=== PATIENT | female | born 1945 | race Asian ===

== ENCOUNTER 2016-07-31 06:35 | Day surgery (SDC) | payer MEDICARE, OTHER ==
[~2016-07-31 06:35] MED LIST: Acetaminophen TAB* 325 MG PO PRN; Buffered Lidocaine 1% SYRIN* 5 ML/SYR SYRINGE INTRADERM ONE
[2016-07-31] MEDS ORDERED: Midazolam* 1 MG/ML 5 ML VIAL (5 MG) ONE (07:36)
[2016-07-31] MEDS ORDERED: fentaNYL* 50 MCG/ML 2 ML VIAL (100 MCG VIAL) ONE (07:36)
[2016-07-31 08:15] VITALS: BP 118/64
[2016-07-31] MEDS ORDERED: Lidocaine 1% MPF* 2 ML VIAL ONE (13:21)
[2016-07-31] MEDS ORDERED: Tropicamide 1% OPTH.SOL* BTL ONE (13:21)
[2016-07-31] MEDS ORDERED: Cyclopentolate 1% OPTH.SOL* 2 ML BTL ONE (13:21)
[2016-07-31] MEDS ORDERED: Neomycin/Polymy/Dex OPHTH.OIN* 3.5 GM ONE (13:21)
[2016-07-31] MEDS ORDERED: Phenylephrine 2.5% OPTH.SOL* 2 ML BTL ONE (13:21)
[2016-07-31] MEDS ORDERED: Tetracaine 0.5% OPTH.SOL 4 ML* 1 DROP BTL ONE (13:21)
[2016-07-31] MEDS ORDERED: Flurbiprofen 0.03% OPTH.SOL* 2.5 ML BTL ONE (13:21)
--- NOTE | 2016-08-01 00:26 | OP ---
OPERATIVE REPORT: DATE OF OPERATION: 07/31/16 - [facility] DATE OF : 45 SURGEON: Dr. Felipe Portillo. BAGGAGE HANDLER: None. ANESTHESIA: Topical with intravenous sedation. PRE-OP DIAGNOSIS: Cataract, right eye. POST-OP DIAGNOSIS: Cataract, right eye. OPERATIVE PROCEDURE: Phacoemulsification and cataract extraction with posterior chamber intraocular lens implant, right eye. COMPLICATIONS: None. BLOOD LOSS: None. OPERATIVE FINDINGS: The patient was brought to the operating room and received a small amount of intravenous sedation. A drop of tetracaine was placed in her right eye. She was prepped and draped in the usual sterile fashion for ophthalmic surgery and attention was directed to the right eye where a speculum was placed. A paracentesis was created at the 11 o'clock position and 0.1 cc of 1 percent preservative-free Lidocaine was injected into the anterior chamber followed by DisCoVisc. The eye was digitally stabilized while a 2.75 mm keratome was used to create a triplanar clear corneal incision at the 9 o'clock position. A continuous curvilinear capsulorrhexis was created with a cystotome and Utrata forceps. BSS on a cannula was used to hydrodissect the lens from the capsule. Phacoemulsification was performed in a [id number]-[id number] technique to create four fragments which were removed. Residual cortical material was removed with irrigation and aspiration. DisCoVisc was used to inflate the capsular bag and an AU00T0 diopter lens was folded and inserted into the capsular bag. DisCoVisc was removed using irrigation and aspiration. BSS on a cannula was used to hydrate the corneal stroma and seal the wound. At the end of the case the pupil was round and the lens was centered. The eye was of normal pressure and the wound was water tight. The speculum was removed and topical Maxitrol ointment was placed on the surface of the eye. The eye was closed, patched and shielded and the patient was sent to the recovery room in stable condition with post operative instructions and follow-up appointment given. [id number]/[facility] #: [id number] MTDShelley
== END 2016-07-31 08:28 | disposition home or self-care (01) ==
LOC: OREAST 06:35
PROVIDERS: ATTEND Ophthalmology
DX: H25.11 Age-related nuclear cataract, right eye (principal); Z85.3 Personal history of malignant neoplasm of breast; Z22.8 Carrier of other infectious diseases
CPT/HCPCS: A9270-GY; J2250; J3010; V2632

== ENCOUNTER 2016-08-07 09:55 | Day surgery (SDC) | payer MEDICARE, OTHER ==
[~2016-08-07 09:55] MED LIST changes: -Acetaminophen TAB* 325 MG PO PRN
[2016-08-07] MEDS ORDERED: Midazolam* 1 MG/ML 2 ML VIAL (2 MG) ONE (12:33)
[2016-08-07] MEDS ORDERED: Flurbiprofen 0.03% OPTH.SOL* 2.5 ML BTL ONE (13:02)
[2016-08-07] MEDS ORDERED: Tetracaine 0.5% OPTH.SOL 4 ML* 1 DROP BTL ONE (13:02)
[2016-08-07] MEDS ORDERED: Neomycin/Polymy/Dex OPHTH.OIN* 3.5 GM ONE (13:02)
[2016-08-07] MEDS ORDERED: Cyclopentolate 1% OPTH.SOL* 2 ML BTL ONE (13:02)
[2016-08-07] MEDS ORDERED: Tropicamide 1% OPTH.SOL* BTL ONE (13:02)
[2016-08-07] MEDS ORDERED: Lidocaine 1% MPF* 2 ML VIAL ONE (13:02)
[2016-08-07] MEDS ORDERED: Phenylephrine 2.5% OPTH.SOL* 2 ML BTL ONE (13:02)
[2016-08-07 13:05] VITALS: BP 119/67
--- NOTE | 2016-08-07 22:57 | OP ---
OPERATIVE REPORT: DATE OF OPERATION: 08/07/16 DATE OF : 45 SURGEON: Dr. Felipe Portillo. LIFT MECHANIC: None. ANESTHESIA: Topical with intravenous sedation. PRE-OP DIAGNOSIS: Cataract, left eye. POST-OP DIAGNOSIS: Cataract, left eye. OPERATIVE PROCEDURE: Phacoemulsification and cataract extraction with posterior chamber intraocular lens implant, left eye. COMPLICATIONS: None. BLOOD LOSS: None. OPERATIVE FINDINGS: The patient was brought to the operating room and received a small amount of in travenous sedation. A drop of Tetracaine was placed in her left eye. She was prepped and draped in the usual sterile fashion for ophthalmic surgery and attention was directed to the left eye where a speculum was placed. A paracentesis was created at the 5 o'clock position and 0.1 cc of 1 percent preservative-free Lidocaine was injected into the anterior chamber followed by DisCoVisc. The eye w as digitally stabilized while a 2.75 mm keratome was used to create a triplanar clear corneal incisi on at the 3 o'clock position. A continuous curvilinear capsulorrhexis was created with a cystotome and Utrata forceps. BSS on a cannula was used to hydrodissect the lens from the capsule. Phacoemul sification was performed in a ggxivn-pbi-vautnlz technique to create four fragments which were remov ed. Residual cortical material was removed with irrigation and aspiration. DisCoVisc was used to in flate the capsular bag and AU00T0 15.0 diopter lens was folded and inserted into the capsular bag. DisCoVisc was removed using irrigation and aspiration. BSS on a cannula was used to hydrate the cor mari stroma and seal the wound. At the end of the case the pupil was round and the lens was centere d. The eye was of normal pressure and the wound was water tight. The speculum was removed and topic al Maxitrol ointment was placed on the surface of the eye. The eye was closed, patched and shielded and the patient was sent to the recovery room in stable condition with post operative instructions and follow-up appointment given. [id number]/[facility] #: [id number]
== END 2016-08-07 13:19 | disposition home or self-care (01) ==
LOC: OREAST 09:55
PROVIDERS: ATTEND Ophthalmology
DX: H25.12 Age-related nuclear cataract, left eye (principal); Z85.3 Personal history of malignant neoplasm of breast; Z22.8 Carrier of other infectious diseases
CPT/HCPCS: A9270-GY; J2250

== ENCOUNTER 2017-08-19 19:06 | Emergency (ER) | payer MEDICARE ==
[2017-08-19 19:37] VITALS: BP 136/58
--- NOTE | 2017-08-19 20:19 | UC ---
Skin Complaint HPI - HPI Summary HPI Summary: 71 y/o female presents to the urgent care c/o red spot above the RT knee she noticed this morning. Pt reports she usually is working on her garden. She thinks it is a tick bite because last year she had a similar rash after removing a tick. However this time she didn't see the tick. Pt denies fever , CHEATHAM, joint pain, abdominal pain, SOB, chest pain, N/V/D. - History of Current Complaint Hx Obtained From: Patient Onset/Duration: Sudden Onset, Lasting Hours - 12 hrs, Resolved Skin Exposure Onset/Duration: Hours Ago - 12 hrs Timing: Constant Onset Severity: Mild Current Severity: Mild Pain Intensity: 0 Pain Scale Used: 0-10 Numeric Location: Discrete - Right thigh Character: Redness Aggravating Factor(s): Touch Alleviating Factor(s): Nothing Associated Signs & Symptoms: Positive: Rash Related History: Possible Reaction to: Insect <Masha Dejesus - Last Filed: 08/20/17 23:05> <Salma Saravia - Last Filed: 08/21/17 08:15> - History of Current Complaint Chief Complaint: UCSkin Time Seen by Provider: 08/19/17 20:00 Stated Complaint: SKIN COMPLAINT - Allergy/Home Medications Allergies/Adverse Reactions: Allergies Allergy/AdvReac Type Severity Reaction Status Date / Time Penicillins Allergy Severe Hives Verified 08/19/17 19:38 Review of Systems Constitutional: Negative Skin: Rash - RT thigh tick bite Eyes: Negative ENT: Negative Respiratory: Negative Cardiovascular: Negative Gastrointestinal: Negative Genitourinary: Negative Motor: Negative Neurovascular: Negative Musculoskeletal: Negative Neurological: Negative Psychological: Negative Is Patient Immunocompromised?: No All Other Systems Reviewed And Are Negative: Yes <Masha Dejesus - Last Filed: 08/20/17 23:05> PMH/Surg Hx/FS Hx/Imm Hx Previously Healthy: Yes - Pt denies PMHX - Surgical History Surgical History: Yes Surgery Procedure, Year, and Place: RIGHT MASTECTOMY, DENTAL SURGERY - Family History Known Family History: Positive: Hypertension - Social History Occupation: Retired Lives: With Family Alcohol Use: None Substance Use Type: None Smoking Status (MU): Never Smoked Tobacco <Masha Dejesus - Last Filed: 08/20/17 23:05> Physical Exam - Summary Physical Exam Summary: Vital Signs Reviewed: Yes General: well developed, well nourished female sitting in the examining table w/ o any apparent distress. Eyes: Positive: Conjunctiva Clear - PERRLA, EOMI ENT: Positive: Normal ENT inspection, Hearing grossly normal, Pharynx normal, TMs normal Neck: Positive: Supple, Nontender, No Lymphadenopathy Respiratory: Positive: Chest nontender, Lungs clear, Normal breath sounds Cardiovascular: Positive: RRR, No Murmur, Pulses Normal Abdomen Description: Positive: Nontender, No Organomegaly, Soft. Negative: CVA Tenderness (R), CVA Tenderness (L) Bowel Sounds: Positive: Present Musculoskeletal: Positive: Strength Intact, ROM Intact, No Edema Neurological Exam: Normal Psychological Exam: Normal Skin: Positive: rashes - Distal anterior aspect ot the RT thigh with tick bite with surrounding erythema, non tender to palpation. tick no longer present, no swelling or drainage observed. Triage Information Reviewed: Yes Vital Signs: Initial Vital Signs Temp 97.6 F 08/19/17 19:31 Pulse 69 08/19/17 19:31 Resp 16 08/19/17 19:31 BP 136/58 08/19/17 19:31 Pulse Ox 98 08/19/17 19:31 <Masha Dejesus - Last Filed: 08/20/17 23:05> Vital Signs: Initial Vital Signs Temp 97.6 F 08/19/17 19:31 Pulse 69 08/19/17 19:31 Resp 16 08/19/17 19:31 BP 136/58 08/19/17 19:31 Pulse Ox 98 08/19/17 19:31 <Salma Saravia - Last Filed: 08/21/17 08:15> Course/Dx - Course Course Of Treatment: 71 y/o female presents to the urgent care c/o red spot above the RT knee she noticed this morning. Pt reports she usually is working on her garden. She thinks it is a tick bite because last year she had a similar rash after removing a tick. However this time she didn't see the tick. Pt denies fever , CHEATHAM, joint pain, abdominal pain, SOB, chest pain, N/V/D.Hx obtained. PT w/ Distal anterior aspect ot the RT thigh with tick bite with surrounding erythema, non tender to palpation. tick no longer present, no swelling or drainage observed on examination. Antibiotic prophylaxis with Doxycycline given to the patient to prevent lyme Disease.. Pt tolerated well medication. Pt advised to observe the area for the development or Erythema Migrans for upto 30 days following exposure. Advised if he develops fever or erythema Migrans to return to the clinic or PCP for further treatment .Pt understood and agreed with plan of care. - Differential Diagnoses - Skin Complaint Differential Diagnoses: Abscess, Cellulitis, Contact Dermatitis, Tick Born Illness, Other - insect bite, bee sting - Diagnoses Provider Diagnoses: 1- RT thigh insect bite <Masha Dejesus - Last Filed: 08/20/17 23:05> Discharge - Sign-Out/Discharge Documenting (check all that apply): Discharge/Admit/Transfer - D/c home - Billing Disposition and Condition Condition: STABLE Disposition: Home <Masha Dejesus - Last Filed: 08/20/17 23:05> - Billing Disposition and Condition Condition: STABLE Disposition: Home <Salma Saravia - Last Filed: 08/21/17 08:15> - Discharge Plan Condition: Stable Disposition: HOME Patient Education Materials: Tick Bite (ED) Referrals: Alexis Devi MD [Primary Care Provider] - 2 Weeks Cristiano FULTON,Pedro Luis Frye [Medical Doctor] - If Needed Additional Instructions: 1- Please observe the area for the development or Erythema Migrans for upto 30 days following exposure. Components of the tick saliva can cause transient erythema that should not be confused with Erythema Migrans. If you develop the bull's eye rash, fever, joint pains please return to the urgent care or f/u with your PCP or Dr Quinonez for further management. 2-Antibiotic prophylaxis with Doxycycline was given to you today to prevent lyme Disease. Lyme serology can be drawn in 2 weeks with your PCP to r/o Lyme disease since there is probability of negative results at early exposure. Attestation Statement User Type: Provider - I was available for consult. This patient was seen by the HO. The patient was not presented to, seen by, or examined by me. -Shelly <Salma Saravia - Last Filed: 08/21/17 08:15>
[2017-08-19] MEDS ORDERED: DOXYcycline CAP(*) 100 MG PO ONE (20:31)
== END 2017-08-19 21:21 | disposition home or self-care (01) ==
LOC: UCEAST 19:06
DX: S70.361A Insect bite (nonvenomous), right thigh, initial encounter (principal); W57.XXXA Bitten or stung by nonvenomous insect and other nonvenomous arthropods, initial encounter; Y93.H2 Activity, gardening and landscaping; Y92.9 Unspecified place or not applicable; Z88.0 Allergy status to penicillin; Z82.49 Family history of ischemic heart disease and other diseases of the circulatory system
CPT/HCPCS: 99212; A9270-GY; G0463